=== PATIENT | female | born 1955 | race Caucasian/White ===

== ENCOUNTER 2021-11-10 12:31 | Emergency (ER) | payer OTHER ==
[~2021-11-10] VITALS: Ht 167.6 cm; Wt 61.2 kg
== END 2021-11-10 22:01 | disposition home or self-care (01) ==
LOC: ER 12:31
DX: D68.61 Antiphospholipid syndrome (principal); K92.2 Gastrointestinal hemorrhage, unspecified; Z20.822 Contact with and (suspected) exposure to COVID-19